=== PATIENT | male | born 1980 | race Caucasian/White ===

== ENCOUNTER → 2022-12-27 10:16 | Outpatient (CLI) | payer OTHER, SELFPAY ==
--- NOTE | 2022-12-27 10:18 | DI.RAD.S_ITS ---
PROCEDURE: XR RIBS RT MIN 3V W CXR 1V INDICATIONS: Fell about 4 ft onto R side on 12/22 - R rib pain TECHNIQUE: 3 views of the right ribs were acquired, along with a single view chest. COMPARISON: None. FINDINGS: Surgical changes and devices: None. Bones and chest wall: There is a minimally displaced 8-10th lateral rib fractures. No suspicious bony lesions. Overlying soft tissues appear unremarkable. Lungs and pleura: No pleural effusions or pneumothorax. Lungs appear clear. Mediastinum: Mediastinal contours appear normal. Heart size is normal. IMPRESSION: Minimally displaced lateral 10th rib fractures. No pneumothorax. Dictated by: Yeimy Marcelino M.D. on 12/27/2022 at 15:40 Approved by: Yeimy Marcelino M.D. on 12/27/2022 at 15:42
== END ==
PROVIDERS: Family Provider Psychiatry & Neurology Psychiatry; PCP Family Medicine; Referring Provider Physician Assistant; Visit Provider Physician Assistant
DX: S22.31XA Fracture of one rib, right side, initial encounter for closed fracture (principal); S20.211A Contusion of right front wall of thorax, initial encounter; R07.81 Pleurodynia; W19.XXXA Unspecified fall, initial encounter
CPT/HCPCS: 71101